=== PATIENT | female | born 1940 | race Caucasian/White ===

== ENCOUNTER 2022-12-23 14:48 | Emergency (ER) | payer OTHER ==
[2022-12-23 15:00] VITALS: BP 114/68; PULSE 75; RESP 18; TEMP 98; BMI 19.5
[2022-12-23] MEDS ORDERED: ACETAMINOPHEN 325 MG TABLET (FP) PO ONE (15:41)
[2022-12-23] MEDS ORDERED: ACETAMINOPHEN 325 MG TABLET (FP) ONE (16:29)
== END 2022-12-23 19:15 | disposition home or self-care (01) ==
LOC: JERFT 14:48
DX: M79.622 Pain in left upper arm (principal); M25.552 Pain in left hip; M25.562 Pain in left knee; S70.02XA Contusion of left hip, initial encounter; W01.0XXA Fall on same level from slipping, tripping and stumbling without subsequent striking against object, initial encounter; Y93.01 Activity, walking, marching and hiking; Y92.415 Exit ramp or entrance ramp of street or highway as the place of occurrence of the external cause
CPT/HCPCS: 71046-TC-FY; 72170-TC-FY; 72192-TC; 73030-TC-LT-FY; 73060-TC-LT-FY; 73552-TC-LT-FY; 73562-TC-LT-FY; 73700-TC-RT; 99284-25